=== PATIENT | female | born 1960 | race Caucasian/White ===

== ENCOUNTER 2016-12-31 20:32 | Emergency (ER) | payer OTHER ==
[2016-12-31] MEDS ORDERED: Sodium Chloride 0.9% 1,000 ML ONE (20:45)
[2016-12-31] MEDS: Sodium Chloride 0.9% 1,000 ML IV ONE ×2 (21:20→22:03)
--- NOTE | 2016-12-31 21:23 | C.PDOC ---
History Of Present Illness 56 year old female presents to the ED with complaints of diffuse abdominal pain and multiple episodes of nausea, vomiting, and diarrhea since approx 3pm today. Patient states she had macaroni salad and rice while at work, thinks her symptoms may be due to food poisoning. As per patient's daughter, patient had a near syncopal episode while at home witnessed by her. Patient denies any chest pain, fever, palpitations, SOB, dysuria. Time Seen by Provider: 12/31/16 20:46 Chief Complaint (Nursing): Abdominal Pain History Per: Patient, Family History/Exam Limitations: no limitations Onset/Duration Of Symptoms: Hrs (since 3pm ) Current Symptoms Are (Timing): Still Present Context: Food Severity: Moderate Location Of Pain/Discomfort: Diffuse Radiation Of Pain To:: None Quality Of Discomfort: "Pain" Associated Symptoms: Nausea, Vomiting, Diarrhea. denies: Fever, Chills, Back Pain Last Bowel Movement: Today Past Medical History Reviewed: Historical Data, Nursing Documentation, Vital Signs Vital Signs: Last Vital Signs Temp 98.4 F 01/01/17 02:18 Pulse 97 H 01/01/17 02:18 Resp 20 01/01/17 02:18 BP 116/78 01/01/17 02:18 Pulse Ox 99 01/01/17 04:25 - Medical History PMH: Gall Bladder Disease Surgical History: Cholecystectomy - [facility] Procedures INJECT/INFUSE NEC (06/24/14) Family History: States: No Known Family Hx - Social History Hx Alcohol Use: No Hx Substance Use: No - Immunization History Hx Tetanus Toxoid Vaccination: No Hx Influenza Vaccination: No Hx Pneumococcal Vaccination: No Review Of Systems Except As Marked, All Systems Reviewed And Found Negative. Constitutional: Negative for: Fever, Chills Cardiovascular: Negative for: Chest Pain, Palpitations Respiratory: Negative for: Cough, Shortness of Breath Gastrointestinal: Positive for: Nausea, Vomiting, Abdominal Pain, Diarrhea Genitourinary: Negative for: Dysuria, Hematuria, Vaginal Discharge, Vaginal Bleeding Musculoskeletal: Negative for: Back Pain Physical Exam - Physical Exam Appears: Non-toxic, In Acute Distress (in moderate discomfort ) Skin: Normal Color, Warm, Dry Head: Normacephalic Eye(s): bilateral: Normal Inspection Oral Mucosa: Moist Neck: Supple Cardiovascular: Rhythm Regular, Other (Mildly tachycardic ) Respiratory: Normal Breath Sounds, No Rales, No Rhonchi, No Wheezing Gastrointestinal/Abdominal: Bowel Sounds, Soft, Tenderness (mild epigastric tenderness to palpation), No Distention, No Guarding, No Rebound, Other ((-) McBurney's, (-) Martin's) Back: No CVA Tenderness Extremity: Normal ROM, No Tenderness Neurological/Psych: Oriented x3 ED Course And Treatment - Laboratory Results Result Diagrams: 12/31/16 21:23 12/31/16 21:23 O2 Sat by Pulse Oximetry: 99 (room air ) Pulse Ox Interpretation: Normal - CT Scan/US CT Abdomen and Pelvis Without Intravenous Contrast Other Rad Studies (CT/US): Read By Radiologist, Radiology Report Reviewed CT/US Interpretation: IMPRESSION: Evaluation of bowel significantly limited without enteric contrast, particularly for bowel wall thickening/inflammation. However, there is a segment of small bowel in the mid lower pelvis which appears to demonstrate questionable bowel wall thickening. There is also slight prominence of the mesenteric markings. Underlying enteritis is a consideration. Colonic diverticula. Please note evaluation for underlying visceral lesions/ abnormalities limited without intravenous. contrast. Progress Note: Blood work, EKG ordered and reviewed. Patient given IV NS bolus , IV toradol and IV zofran. Patient continued to c/o pain, given IV morphine and IV fenatnyl (due to borderline l9ow BP). Multiple IV NS boluses given, and CT scan abd/pelvis ordered. Reevaluation Time: 02:00 Reassessment Condition: Improved (On reassessment, patient states she feels significantly better. Vitals have improved. On exam, abdomen is soft and nontender. CT scan indicative of enteritis. Patient and family comfortable with her being dicharged home. She was given rxs for zofran ODT, pepcid and instructed to drink plenty of clear fluids and advance to bland diet slowly. Patient also instructed to follow up with PMD in 1-2 days, and understands she should return to Ed if symptoms worsen.) Disposition Counseled Patient/Family Regarding: Studies Performed, Diagnosis, Need For Followup, Rx Given - Disposition Referrals: Marlee Fischer MD [Staff Provider] - Disposition: HOME/ ROUTINE Disposition Time: 02:00 Condition: STABLE Prescriptions: Famotidine [Pepcid] 1 tab PO BID #30 tab Ondansetron [Zofran Odt] 1 odt PO BID PRN #6 odt PRN Reason: .nausea vomiting Instructions: Gastroenteritis (ED) Forms: Gen Discharge Inst Icelandic - POA Present On Arrival: None - Clinical Impression Clinical Impression: Nausea, Vomiting, Diarrhea - Scribe Statement The provider has reviewed the documentation as recorded by the Scribe Zara Lopez All medical record entries made by the Toñoibcecil were at my direction and personally dictated by me. I have reviewed the chart and agree that the record accurately reflects my personal performance of the history, physical exam, medical decision making, and the department course for this patient. I have also personally directed, reviewed, and agree with the discharge instructions and disposition.
[2016-12-31 21:38] LABS: BASO % 0.1 % (0.0-2.0); CHLORIDE 100 mmol/L (98-107); EOS % 0.2 % (0.0-4.0); HEMATOCRIT 40.6 % (34.0-47.0); LYMPH # 0.9 K/uL (1.0-4.3); LYMPH % 9.2 % (20.0-40.0); MEAN CELL VOLUME 90.2 fL (81.0-99.0); MEAN CORPUSCULAR HEMOGLOBIN 30.5 pg (27.0-31.0); MEAN CORPUSCULAR HGB CONC 33.8 g/dL (33.0-37.0); MEAN PLATELET VOLUME 8.4 fL (7.2-11.7); MONO # 0.5 K/uL (0.0-0.8); MONO % 5.1 % (0.0-10.0); NRBC % 0.1 % (0.0-2.0); PLATELET COUNT 220 K/uL (130-400); POTASSIUM 3.4 mmol/L (3.6-5.2); RED CELL DISTRIBUTION WIDTH 12.7 % (11.5-14.5); SODIUM 138 mmol/L (132-148); WHITE BLOOD COUNT 9.9 K/uL (4.8-10.8)
[2016-12-31 21:40] LABS: ALB/GLOB RATIO 1.3 (1.0-2.1); ALKALINE PHOSPHATASE 114 U/L (38-126); AST/SGOT 24 U/L (14-36); BILIRUBIN,TOTAL 0.5 mg/dL (0.2-1.3); BLOOD UREA NITROGEN 16 mg/dL (7-17); CARBON DIOXIDE 27 mmol/L (22-30); GFR AFRICAN-AMERICAN > 60; TOTAL PROTEIN 7.5 g/dL (6.3-8.3)
[2016-12-31 21:41] LABS: ALT/SGPT 25 U/L (9-52); GLUCOSE,RANDOM 126 mg/dL (65-105)
[2016-12-31 22:11] LABS: EOSINOPHIL 1 % (0-4); NEUTROPHIL 79 % (50-75); TOTAL CELLS COUNTED 100
[2016-12-31 22:13] LABS: RBC URINE 3 /hpf (0-3); URINE BACTERIA RARE (<OCC); URINE BILIRUBIN NEGATIVE (NEGATIVE); URINE BLOOD NEGATIVE (NEGATIVE); URINE COLOR Straw (YELLOW); URINE GLUCOSE (UA) NORMAL (Normal); URINE KETONE NEGATIVE (NEGATIVE); URINE PROTEIN NEGATIVE (NEGATIVE); URINE UROBILINOGEN NORMAL mg/dL (0.2-1.0); WBC URINE 1 /hpf (0-5)
[2016-12-31 22:14] LABS: URINE LEUKOCYTE ESTERASE NEGATIVE Leu/uL (Negative)
[2016-12-31 22:24] LABS: CALCIUM 9.1 mg/dl (8.6-10.4)
[2016-12-31 23:09] VITALS: O2SAT 99
[2016-12-31] MEDS ORDERED: Sodium Chloride 0.9% 1,000 ML IV ONE (23:10)
--- NOTE | 2017-01-01 00:09 | CT ---
EXAM: CT Abdomen and Pelvis Without Intravenous Contrast CLINICAL HISTORY: 56 years old, female; Pain; Abdominal pain; Generalized; Additional info: Diffuse abd pain, vomiting/diarrhea TECHNIQUE: Axial computed tomography images of the abdomen and pelvis without intravenous contrast. This CT exam was performed using one or more of the following dose reduction techniques: automated exposure control, adjustment of the mA and/or kV according to patient size, and/or use of iterative reconstruction technique. Coronal and sagittal reformatted images were created and reviewed. COMPARISON: No relevant prior studies available. FINDINGS: The unenhanced liver, spleen, pancreas and adrenal glands demonstrate no acute abnormalities. Status post Colles cystectomy. No obstructing renal calculus or hydronephrosis. The aorta is normal in caliber. Please note evaluation for underlying visceral lesions/abnormalities limited without intravenous contrast. Evaluation of bowel significantly limited without enteric contrast, particularly for bowel wall thickening/inflammation. However, there is a segment of small bowel in the mid lower pelvis which appears to demonstrate questionable bowel wall thickening. There is also slight prominence of the mesenteric markings. Underlying enteritis is a consideration. No bowel obstruction. Colonic diverticula. Normal-caliber appendix. No ascites. No free air. Mild degenerative changes. IMPRESSION: Evaluation of bowel significantly limited without enteric contrast, particularly for bowel wall thickening/inflammation. However, there is a segment of small bowel in the mid lower pelvis which appears to demonstrate questionable bowel wall thickening. There is also slight prominence of the mesenteric markings. Underlying enteritis is a consideration. Colonic diverticula. Please note evaluation for underlying visceral lesions/abnormalities limited without intravenous contrast.
[2017-01-01] MEDS ORDERED: Sodium Chloride 0.9% 1,000 ML ONE (01:17)
[2017-01-01] MEDS: Sodium Chloride 0.9% 1,000 ML IV ONE (01:22)
[2017-01-01 02:21] VITALS: BP 116/78; PULSE 97; RESP 20; TEMP 98.4
== END 2017-01-01 02:21 | disposition home or self-care (01) ==
LOC: C.ER 20:32
DX: R11.2 Nausea with vomiting, unspecified (principal); R19.7 Diarrhea, unspecified
CPT/HCPCS: 74176; 80053; 81001; 83690; 85025; 96360; 96361; 96374; 96375; 99285; J1885; J2270; J2405; J3010; J7040

== ENCOUNTER 2017-06-17 07:30 | Emergency (ER) | payer OTHER ==
[2017-06-17] MEDS ORDERED: Sodium Chloride 0.9% 1,000 ML IV ONE (07:54)
[2017-06-17] MEDS ORDERED: Sodium Chloride 0.9% 1,000 ML ONE (08:01)
--- NOTE | 2017-06-17 08:09 | C.PDOC ---
History Of Present Illness 56 y/o female presents to ED c/o dysuria, left side abdominal, and left side back pain for the past week. Notes being seen by PMD last week, was prescribed antibiotics for UTI which pt completed without improvement. Pt states that symptoms persists, which prompted her to visit ED today. Denies n/v/d, or fever. Time Seen by Provider: 06/17/17 07:42 Chief Complaint (Nursing): Female Genitourinary History Per: Patient History/Exam Limitations: no limitations Onset/Duration Of Symptoms: Days Current Symptoms Are (Timing): Still Present Quality Of Discomfort: "Pain" Associated Symptoms: Back Pain, Urinary Symptoms Alleviating Factors: None Recent travel outside of the [place]: No Additional History Per: Patient Abnormal Vaginal Bleeding: No Past Medical History Reviewed: Historical Data, Nursing Documentation, Vital Signs Vital Signs: Last Vital Signs Temp 97.7 F 06/17/17 11:11 Pulse 70 06/17/17 11:11 Resp 18 06/17/17 11:11 BP 123/72 06/17/17 11:11 Pulse Ox 98 06/17/17 12:25 - Medical History PMH: Gall Bladder Disease Surgical History: Cholecystectomy - [facility] Procedures INJECT/INFUSE NEC (06/24/14) Family History: States: Unknown Family Hx - Social History Hx Alcohol Use: No Hx Substance Use: No - Immunization History Hx Tetanus Toxoid Vaccination: No Hx Influenza Vaccination: No Hx Pneumococcal Vaccination: No Review Of Systems Except As Marked, All Systems Reviewed And Found Negative. Constitutional: Negative for: Fever, Chills Gastrointestinal: Positive for: Abdominal Pain. Negative for: Nausea, Vomiting , Diarrhea Genitourinary: Positive for: Dysuria. Negative for: Frequency, Hematuria, Vaginal Discharge, Vaginal Bleeding Musculoskeletal: Positive for: Back Pain Neurological: Negative for: Weakness, Numbness Physical Exam - Physical Exam Appears: Non-toxic, No Acute Distress Skin: Normal Color, Warm, Dry Head: Atraumatic, Normacephalic Eye(s): bilateral: Normal Inspection Oral Mucosa: Moist Chest: Symmetrical Cardiovascular: Rhythm Regular, No Murmur Respiratory: Normal Breath Sounds, No Rales, No Rhonchi, No Wheezing Gastrointestinal/Abdominal: Soft, Tenderness (mild left side of abdomen), No Guarding, No Rebound Back: CVA Tenderness (mild left), No Vertebral Tenderness Extremity: Normal ROM, No Deformity Neurological/Psych: Oriented x3, Normal Speech ED Course And Treatment - Laboratory Results Result Diagrams: 06/17/17 08:14 06/17/17 08:14 Lab Interpretation: Normal O2 Sat by Pulse Oximetry: 98 Pulse Ox Interpretation: Normal - CT Scan/US No standard instances Other Rad Studies (CT/US): Read By Radiologist, Radiology Report Reviewed CT/US Interpretation: FINDINGS: LOWER THORAX: The lung bases are clear. LIVER : Normal in size. No gross lesion or ductal dilatation. GALLBLADDER AND BILE DUCTS: Surgically absent. PANCREAS: Normal in size. No gross lesion or ductal dilatation. SPLEEN: Normal in size. ADRENALS: No discrete nodule. KIDNEYS AND URETERS: Normal in size without hydronephrosis or nephrolithiasis. VASCULATURE: No aortic aneurysm. BOWEL: The small bowel loops are normal in caliber. There is mild left colonic diverticulosis without CT evidence for acute diverticulitis. APPENDIX: Normal appendix. PERITONEUM: No free fluid. No free air. LYMPH NODES: No enlarged lymph nodes. BLADDER: Normal in appearance. REPRODUCTIVE: The uterus is normal in size. BONES: No acute fracture. Within normal limits for the patient's age. OTHER FINDINGS: None. IMPRESSION: No acute abdominal or pelvic abnormality. Mild left colonic diverticulosis without CT evidence for acute diverticulitis. Progress Note: Blood work, UA, Abd & Pelvis CT scan ordered and reviewed. On re -evaluation abdomen soft. Discharged in stable condition Reassessment Condition: Improved Disposition Counseled Patient/Family Regarding: Studies Performed, Diagnosis, Need For Followup - Disposition Referrals: [facility] [Outside] [facility] [Outside] Disposition: HOME/ ROUTINE Disposition Time: 10:30 Condition: STABLE Additional Instructions: Follow up with PMD for further evaluation Instructions: Abdominal Pain (ED) Forms: [facility] (Vietnamese) Print Language: INDONESIAN - POA Present On Arrival: None - Clinical Impression Clinical Impression: Abdominal pain - PA / DIMENSIONAL INTEGRATION ENGINEER / Resident Statement MD/DO has reviewed & agrees with the documentation as recorded. - Scribe Statement The provider has reviewed the documentation as recorded by the Toñoibe Saritha Ryan All medical record entries made by the Toñoibcecil were at my direction and personally dictated by me. I have reviewed the chart and agree that the record accurately reflects my personal performance of the history, physical exam, medical decision making, and the department course for this patient. I have also personally directed, reviewed, and agree with the discharge instructions and disposition.
[2017-06-17 08:21] LABS: BASO % 0.3 % (0.0-2.0); EOS # 0.3 K/uL (0.0-0.7); EOS % 6.5 % (0.0-4.0); HEMATOCRIT 38.7 % (34.0-47.0); LYMPH # 1.2 K/uL (1.0-4.3); LYMPH % 28.8 % (20.0-40.0); MEAN CELL VOLUME 90.8 fL (81.0-99.0); MEAN CORPUSCULAR HEMOGLOBIN 30.9 pg (27.0-31.0); MEAN PLATELET VOLUME 7.6 fL (7.2-11.7); MONO # 0.4 K/uL (0.0-0.8); MONO % 8.7 % (0.0-10.0); RED CELL DISTRIBUTION WIDTH 12.7 % (11.5-14.5); WHITE BLOOD COUNT 4.3 K/uL (4.8-10.8)
[2017-06-17 08:34] LABS: ALB/GLOB RATIO 1.1 (1.0-2.1); ALKALINE PHOSPHATASE 80 U/L (38-126); ALT/SGPT 44 U/L (9-52); AST/SGOT 25 U/L (14-36); BILIRUBIN,TOTAL 0.7 mg/dL (0.2-1.3); BLOOD UREA NITROGEN 15 mg/dL (7-17); CALCIUM 8.6 mg/dl (8.6-10.4); CARBON DIOXIDE 29 mmol/L (22-30); CHLORIDE 105 mmol/L (98-107); GFR AFRICAN-AMERICAN > 60; GLUCOSE,RANDOM 101 mg/dL (65-105); POTASSIUM 4.1 mmol/L (3.6-5.2); SODIUM 139 mmol/L (132-148); TOTAL PROTEIN 8.1 g/dL (6.3-8.3)
[2017-06-17 08:49] LABS: URINE BILIRUBIN NEGATIVE (NEGATIVE); URINE BLOOD 1+ (NEGATIVE); URINE COLOR Yellow (YELLOW); URINE GLUCOSE (UA) NORMAL (Normal); URINE KETONE NEGATIVE (NEGATIVE); URINE LEUKOCYTE ESTERASE NEG Leu/uL (Negative); URINE PROTEIN NEGATIVE (NEGATIVE); URINE UROBILINOGEN NORMAL mg/dL (0.2-1.0)
[2017-06-17 09:22] LABS: RBC URINE 3 /hpf (0-3); URINE BACTERIA RARE (<OCC)
[2017-06-17 09:23] LABS: WBC URINE 1 /hpf (0-5)
--- NOTE | 2017-06-17 09:31 | CT ---
PROCEDURE: CT Abdomen and Pelvis without intravenous contrast HISTORY: Pain COMPARISON: 12/31/2016. TECHNIQUE: CT scan of abdomen and pelvis was performed without administration of intravenous contrast. Oral contrast was not administered. Coronal and sagittal reformatted images were obtained. Radiation dose: Total exam DLP = 289.70 mGy-cm. This CT exam was performed using one or more of the following dose reduction techniques: Automated exposure control, adjustment of the mA and/or kV according to patient size, and/or use of iterative reconstruction technique. FINDINGS: LOWER THORAX: The lung bases are clear. LIVER: Normal in size. No gross lesion or ductal dilatation. GALLBLADDER AND BILE DUCTS: Surgically absent. PANCREAS: Normal in size. No gross lesion or ductal dilatation. SPLEEN: Normal in size. ADRENALS: No discrete nodule. KIDNEYS AND URETERS: Normal in size without hydronephrosis or nephrolithiasis. VASCULATURE: No aortic aneurysm. BOWEL: The small bowel loops are normal in caliber. There is mild left colonic diverticulosis without CT evidence for acute diverticulitis. APPENDIX: Normal appendix. PERITONEUM: No free fluid. No free air. LYMPH NODES: No enlarged lymph nodes. BLADDER: Normal in appearance. REPRODUCTIVE: The uterus is normal in size. BONES: No acute fracture. Within normal limits for the patient's age. OTHER FINDINGS: None. IMPRESSION: No acute abdominal or pelvic abnormality. Mild left colonic diverticulosis without CT evidence for acute diverticulitis.
[2017-06-17 10:24] VITALS: O2SAT 98
[2017-06-17 11:12] VITALS: BP 123/72; PULSE 70; RESP 18; TEMP 97.7
== END 2017-06-17 11:23 | disposition home or self-care (01) ==
LOC: C.ER 07:30
DX: R10.9 Unspecified abdominal pain (principal)
CPT/HCPCS: 74176; 80053; 81001; 85025; 87086; 96360; 99285; J7040